=== PATIENT | male | born 1980 | race Caucasian/White ===

== ENCOUNTER 2025-02-07 23:56 | Emergency (ER) | payer OTHER, SELFPAY ==
[2025-02-08] VITALS (7 sets, daily range): BP systolic 190–206; BP diastolic 94–116; PULSE 71–91; RESP 17–20; TEMP 36.3; O2SAT 91–96; BMI 34.1
--- NOTE | 2025-02-08 01:01 | CTR_ITS ---
PROCEDURE INFORMATION: Exam: CT Abdomen And Pelvis Without Contrast Exam date and time: 02/08/2025 1:15 AM Age: 44 years old Clinical indication: Nausea and vomiting; Abdominal pain; Right; Prior surgery; Surgery date: 6+ months; Surgery type: Gb. Penectomy; C/O RT flank pain with n/v. History of penile cancer. TECHNIQUE: Imaging protocol: Computed tomography of the abdomen and pelvis without contrast. Radiation optimization: All CT scans at this facility use at least one of these dose optimization techniques: automated exposure control; mA and/or kV adjustment per patient size (includes targeted exams where dose is matched to clinical indication); or iterative reconstruction. COMPARISON: No relevant prior studies available. RADIATION DOSE METRICS: Total DLP (mGy-cm): 941.2 FINDINGS: Liver: Normal. No mass. Gallbladder and biliary ducts: Gallbladder is surgically absent. Pancreas: Normal. No ductal dilation. Spleen: Normal. No splenomegaly. Adrenal glands: Normal. No mass. Kidneys and ureters: There is [id number] right-sided hydronephrosis and hydroureter secondary to a 4 mm stone now residing in the right posterior urinary bladder. There is mild right-sided perinephric stranding. The left kidney is unremarkable. Stomach and bowel: Unremarkable. No obstruction. No mucosal thickening. Appendix: No evidence of appendicitis. Intraperitoneal space: Unremarkable. No free air. No significant fluid collection. Vasculature: Unremarkable. No abdominal aortic aneurysm. Lymph nodes: Unremarkable. No enlarged lymph nodes. Urinary bladder: Unremarkable as visualized. Reproductive: Unremarkable as visualized. Bones/joints: Multilevel degenerative changes involve the spine. The bone density is decreased. No acute bony abnormality. Soft tissues: Surgical gilbert present within the bilateral groin region. CT/CT kidney stone [id number] IMPRESSION: Right obstructive uropathy secondary to a 4 mm stone now residing in the posterior urinary bladder.
[2025-02-08 01:07] LABS: Basophils % 0.3 %; Eosinophils # 0.1 10^3/uL (0.0-0.8); Eosinophils % 0.4 %; Hematocrit 50.7 % (37-53); Lymphocytes # 1.3 10^3/uL (0.8-4.8); Lymphocytes % 9.3 %; Mean Corpuscular HGB Conc 33.3 g/dL (30-55); Mean Corpuscular Hemoglobin 30.6 pg (27-33); Mean Corpuscular Volume 91.8 fl (82-101); Mean Platelet Volume 9.8 fL (7.4-10.4); Monocytes # 0.7 10^3/uL (0.2-0.9); Monocytes % 5.1 %; Neutrophils # 11.49 10^3/uL (1.8-7.7); Neutrophils % 84.7 %; Nucleated Red Blood Cells % 0 %; Platelet Count 249 10^3/cmm (157-399); Red Blood Count 5.52 10^6/uL (3.85-5.65); Red Cell Distribution Width 13.6 % (12.1-15.1); White Blood Count 13.56 10^3/uL (3.29-11.43)
[2025-02-08] MEDS: morphine 4 mg/mL SDV 1 mL IVP (01:07)
[2025-02-08] MEDS: ondansetron 2 mg/ML SDV 2 mL 4 MG IVP (01:07)
[2025-02-08] MEDS: lactated ringers 1,000 ML 999 ML IV (01:09)
[2025-02-08 01:31] LABS: Alanine Aminotransferase 46 U/L (0-41); Albumin Level 4.2 g/dL (3.5-5.2); Alkaline Phosphatase 98 U/L (40-130); Anion Gap 15.6 (5-19); Aspartate Amino Transferase 22 U/L (0-40); Blood Urea Nitrogen 17 mg/dL (6-20); Calcium 9.3 mg/dL (8.5-10.5); Carbon Dioxide 27 mmol/L (22-29); Chloride 101 mmol/L (98-107); Creatinine Clr Calc Pharmacy 94.6332; Globulin 3.4 g/dL (1.3-4.6); Glomerular Filtration Rate 65.2 mL/min (90-130); Glucose 173 mg/dL (65-115); Lipase 24 U/L (13-60); Osmolality Calculated 296 mOsm/kg (285-295); Potassium 3.6 mmol/L (3.5-5.1); Sodium 140 mmol/L (136-145); Total Bilirubin 0.8 mg/dL (0.15-1.2); Total Protein 7.6 g/dL (6.6-8.7)
--- NOTE | 2025-02-08 01:55 | ED_ITS ---
HPI - Abdominal Pain 2 General: Chief Complaint: Abdominal Pain Stated Complaint: rt flank pain/ abd, n/v Time Seen by Provider: 02/08/25 00:59 History of Present Illness: Bk Ware presents to the emergency department with acute right-sided abdominal pain that started tonight. The pain is described as radiating from his right side around to the front. 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 He initially experienced an urge to have a bowel movement but was unable to go. After returning to the couch, the pain suddenly intensified. Since then, the pain has been progressively worsening and becoming more constant. The pain is localized to the right side of his abdomen, extending from his back around to the front. He denotes significant pain on palpation over the right obliques. Associated symptoms include nausea, for which he has been given an emesis bag. The patient denies fever, pain with urination, urinary frequency or urgency, blood in urine, shortness of breath, or chest pain. He also mentions difficulty urinating, stating I can't even go and I don't need to go. The patient's recent activities include climbing and other physical work related to the [employer] project, which involved twisting motions. However, he emphasizes that the pain began after he had finished working and was resting. Related Data Previous Rx's ?Medication ?Instructions ?Recorded nitrofurantoin macrocrystal 100 mg 100 mg PO BID 7 day s #14 caps 02/08/25 capsule tramadol 50 mg tablet 50 mg PO TID PRN pain #21 ta bs 02/08/25 Allergies Allergy/AdvReac Type Severity Reaction Status Date / Time ibuprofen Allergy ADR-Nausea Verified 02/08/25 00:07 Review of Systems 2 General: Reports: 10 or more systems reviewed and unremarkable except in HPI and below Physical Exam 2 Const: COMMON NORMALS: no acute distress, patient oriented x3, healthy appearing, alert and well nourished HENMT: COMMON NORMALS: normocephalic HEAD & SCALP: normocephalic Eye: COMMON NORMALS: EOMs intact bilaterally Neck/C-Spine: COMMON NORMALS: full ROM and supple Resp: COMMON NORMALS: normal respiratory effort, No retractions and clear to auscultation bilaterally AUSCULTATION: clear to auscultation bilaterally Cardio: COMMON NORMALS: regular rate, regular rhythm, No gallops present (Cardio) and No murmurs present (Cardio) RATE: regular rate RHYTHM: r egular rhythm GI: COMMON NORMALS: Soft to palpation and non-tender PALPATION: Yes Soft to palpation Back/Pelvis: OTHER: Tenderness to palpation over the right obliques. Negative CVA tenderness Extremity: GENERAL: Yes normal exam except as noted Neuro: COMMON NORMALS: patient oriented x3 SENSORIUM/ORIENTATION: Yes alert Skin: COMMON NORMALS: no rashes or lesions noted GENERAL SKIN EXAM: no rashes or lesions noted Course 2 Vital Signs: Vital signs: Vital Signs Temperature 97.4 F L 02/08/25 00:01 Pulse Rate 91 02/08/25 05:43 Respiratory Rate 18 02/08/25 05:43 Blood Pressure 206/103 02/08/25 05:43 Pulse Oximetry 91 02/08/25 05:43 Oxygen Delivery Me thod Room Air 02/08/25 05:00 MDM - Abdominal Pain Medical Decision Making 44-year-old male presents to the emergency department for evaluation of right- sided flank pain. Patient CT scan demonstrated a 4 mm stone on the right that was now in the bladder. However, there is still signs of obstruction on that side. Patient has a slightly elevated white count. His urinalysis was not consistent with acute cystitis. However, due to the stranding around the ureter on that side on CT decided to treat the patient with antibiotics. Management of the stone will be done outpatient. Patient provided with narcotic pain medicines and nitrofurantoin. Encouraged him to follow with his primary care physician next week. Discussed with him that he may need to follow-up with urology if this does not resolve outpatient. Return precautions were discussed and the patient was discharged home in stable condition. Lab Data 02/08/25 01:00 02/08/25 01:00 Labs/Radiology: Radiology Impressions Abdomen/Pelvis CT 02/08/25 01:01 IMPRESSION: Right obstructive uropathy secondary to a 4 mm stone now residing in the posterior urinary bladder. Laboratory Results WBC 13.56 10^3/uL (3.29-11.43) H 02/08/25 01:00 RBC 5.52 10^6/uL (3.85-5.65) 02/08/25 01:00 Hgb 16.90 g/dL (11.27-16.99) 02/08/25 01:00 Hct 50.7 % (37-53) 02/08/25 01:00 MCV 91.8 fl (82-101) 02/08/25 01:00 MCH 30.6 pg (27-33) 02/08/25 01:00 MCHC 33.3 g/dL (30-55) 02/08/25 01:00 RDW 13.6 % (12.1-15.1) 02/08/25 01:00 Plt Count 249 10^3/cmm (157-399) 02/08/25 01:00 MPV 9.8 fL (7.4-10.4) 02/08/25 01:00 Neut % (Auto) 84.7 % 02/08/25 01:00 Lymph % (Auto) 9.3 % 02/08/25 01:00 [place] % (Auto) 5.1 % 02/08/25 01:00 Eos % (Auto) 0.4 % 02/08/25 01:00 Baso % (Auto) 0.3 % 02/08/25 01:00 Neut # (Auto) 11.49 10^3/uL (1.8-7.7) H 02/08/25 01:00 Lymph # (Auto) 1.3 10^3/uL (0.8-4.8) 02/08/25 01:00 [place] # (Auto) 0.7 10^3/uL (0.2-0.9) 02/08/25 01:00 Eos # (Auto) 0.1 10^3/uL (0.0-0.8) 02/08/25 01:00 Baso # (Auto) 0.0 10^3/uL (0.0-0.1) 02/08/25 01:00 Nucleated RBC % (auto) 0 % 02/08/25 01:00 Nucleated RBCs # 0.0 /100WBC 02/08/25 01:00 Sodium 140 mmol/L (136-145) 02/08/25 01:00 Potassium 3.6 mmol/L (3.5-5.1) 02/08/25 01:00 Chloride 101 mmol/L (98-107) 02/08/25 01:00 Carbon Dioxide 27 mmol/L (22-29) 02/08/25 01:00 Anion Gap 15.6 (5-19) 02/08/25 01:00 BUN 17 mg/dL (6-20) 02/08/25 01:00 Creatinine 1.2 mg/dL (0.7-1.2) 02/08/25 01:00 GFR Calculation 65.2 mL/min (90-130) L 02/08/25 01:00 Glucose 173 mg/dL (65-115) H 02/08/25 01:00 Calculated Osmolality 296 mOsm/kg (285-295) H 02/08/25 01:00 Calcium 9.3 mg/dL (8.5-10.5) 02/08/25 01:00 Total Bilirubin 0.8 mg/dL (0.15-1.2) 02/08/25 01:00 AST 22 U/L (0-40) 02/08/25 01:00 ALT 46 U/L (0-41) H 02/08/25 01:00 Alkaline Phosphatase 98 U/L (40-130) 02/08/25 01:00 Total Protein 7.6 g/dL (6.6-8.7) 02/08/25 01:00 Albumin 4.2 g/dL (3.5-5.2) 02/08/25 01:00 Globulin 3.4 g/dL (1.3-4.6) 02/08/25 01:00 Lipase 24 U/L (13-60) 02/08/25 01:00 Urine Color Yellow (Yellow) 02/08/25 04:46 Urine Appearance Clear (CLEAR) 02/08/25 04:46 Urine pH 6.0 (5-7) 02/08/25 04:46 Ur Specific [place] 1.027 (1.005-1.030) 02/08/25 04:46 Urine Protein 1+ (Negative) A 02/08/25 04:46 Urine Glucose (UA) Negative (Normal) 02/08/25 04:46 Urine Ketones Negative (Negative) 02/08/25 04:46 Urine Blood 3+ (Negative) A 02/08/25 04:46 Urine Nitrate Negative (Negative) 02/08/25 04:46 Urine Bilirubin Negative (Negative) 02/08/25 04:46 Urine Urobilinogen 1.0 mg/dL (Negative) 02/08/25 04:46 Ur Leukocyte Esterase 2+ (Negative) A 02/08/25 04:46 Urine RBC 11-20 /hpf (0-2) H 02/08/25 04:46 Urine WBC 21-50 /hpf (0-5) H 02/08/25 04:46 Ur Squamous Epith Cells 0-5 /hpf (0-5) 02/08/25 04:46 Amorphous Sediment Not Reportable 02/08/25 04:46 Urine Bacteria None seen /hpf (NONE) 02/08/25 04:46 Hyaline Casts 1.65 /lpf 02/08/25 04:46 All radiology interpretation(s) finalized by discharge Discharge Plan Discharge Patient Disposition: Home Clinical Impression: Nephrolithiasis, Acute flank pain Condition: Stable Prescriptions: New tramadol 50 mg tablet 50 mg PO TID PRN (Reason: pain) Qty: 21 0RF nitrofurantoin macrocrystal 100 mg capsule 100 mg PO BID 7 Days Qty: 14 0RF Rx Instructions: must administer with a meal/food Discharge Orders: Discharge ED (Routine); Ordered 02/08/25 Ordered By: Marcelo Law Discharge Diet: Advance as tolerated Discharge Activity: Increase activity as tolerated Patient Instructions: Opioid Safety, Pain Management Activity Restrictions/Additional Instructions: Please follow-up with your primary care physician within the next week. If your flank pain does not resolve within the next week you will likely need to follow- up with urology regarding your kidney stone. Return to the emergency department with any new or worsening symptoms. Print Language: Dutch Coding Level of Care Code ED Roll Inspector for Bernadine Wilcox
[2025-02-08] MEDS: TRAMadol 50 mg Tablet 100 MG PO (02:16)
[2025-02-08 04:56] LABS: Bilirubin Urine Negative (Negative); Blood Urine 3+ (Negative); Glucose Urine UA Negative (Normal); Ketones Urine Negative (Negative); Leukocyte Esterase Urine 2+ (Negative); Nitrate Urine Negative (Negative); Protein Urine 1+ (Negative); Specific Gravity, Urine 1.027 (1.005-1.030); Urine Appearance Clear (CLEAR); Urine Color Yellow (Yellow)
[2025-02-08 05:00] LABS: Add Urine Microscopic? YES; Bacteria Urine None Seen /hpf; Hyaline Casts Urine 1.65 /lpf; Squamous Epithelial Cell Urine 0-5 /hpf (0-5); WBC Urine 21-50 /hpf (0-5)
[2025-02-08 05:03] LABS: Add Urine Culture? Yes
== END 2025-02-08 05:46 | disposition home or self-care (01) ==
PROVIDERS: Emergency Provider General Practice
DX: N20.0 Calculus of kidney (principal)
CPT/HCPCS: 36415; 74176; 80053; 81001; 83690; 85025; 87086; 96361; 96374; 96375; 99285; J2270; J2405; J7120; J9999